=== PATIENT | female | born 1955 | race Caucasian/White ===

== ENCOUNTER 2022-02-01 12:38 | Emergency (ER) | payer BC ==
[~2022-02-01 12:38] MED LIST: BENICAR5 MG PO; CALCIUM + D3 E1 EACH PO; CARBIDOPA-LEVO1 EA14 PO; LEVOTHYROXINE75 MCG PO; MAXZIDE 37.5/21 EACH PO; PRENATAL FORTE PO; VANICREAM18200 GM TP; VITAMIN D21250 MCG PO
[2022-02-01] MEDS ORDERED: IBUPROFEN600 MG PO (15:00)
== END 2022-02-01 15:10 | disposition home or self-care (01) ==
LOC: ER1 12:38
DX: S83.91XA Sprain of unspecified site of right knee, initial encounter (principal); X50.1XXA Overexertion from prolonged static or awkward postures, initial encounter; E07.9 Disorder of thyroid, unspecified; Z90.710 Acquired absence of both cervix and uterus
CPT/HCPCS: 73564; 93971; 99284